=== PATIENT | female | born 1950 | race Caucasian/White ===

== ENCOUNTER 2022-03-08 06:58 | Emergency (ER) | payer MEDICARE, BC ==
[~2022-03-08] VITALS: Ht 167.6 cm; Wt 100.0 kg
[2022-03-08] MEDS ORDERED: NS 1,000 ML IV ONE (07:50)
[2022-03-08] MEDS ORDERED: ISOVUE-370 76% 100ML VIAL As Ordered ONE (08:18)
[2022-03-08 08:28] LABS: BASO % 0.4 % (0.0-1.0); EOS # 0.2 10^3/uL (0.0-0.5); EOS % 1.5 % (0.0-3.0); HEMATOCRIT 35.2 % (36.0-47.0); HEMOGLOBIN 11.3 g/dl (12.0-15.5); LYMPH # 2.4 10^3/uL (1.5-5.0); LYMPH % 21.9 % (24.0-44.0); MEAN CORPUSCULAR HEMOGLOBIN 30.5 pg (27.0-33.0); MEAN CORPUSCULAR HGB CONC 32.1 g/dl (32.0-36.5); MEAN CORPUSCULAR VOLUME 95.1 fl (80.0-96.0); MONO # 0.8 10^3/uL (0.0-0.8); NEUTROPHILS # 7.6 10^3/uL (1.5-8.5); NEUTROPHILS % 68.5 % (36.0-66.0); PLATELET COUNT, AUTOMATED 284 10^3/uL (150-450); WHITE BLOOD COUNT 11.1 10^3/uL (4.0-10.0)
[2022-03-08] MEDS ORDERED: HYDROMORPHONE HCL 0.5 MG/ 0.5 ML SYRINGE (J1170 PER 1) IV ONE (08:50)
[2022-03-08 09:16] LABS: ALBUMIN 3.4 GM/DL (3.2-5.2); BILIRUBIN,DIRECT 0.1 MG/DL (0.0-0.2); BILIRUBIN,TOTAL 0.1 MG/DL (0.2-1.0); TOTAL PROTEIN 6.7 GM/DL (6.4-8.2)
[2022-03-08 12:21] VITALS: BP 136/69
== END 2022-03-08 12:22 | disposition home or self-care (01) ==
LOC: M ED 06:58
DX: S22.080A Wedge compression fracture of T11-T12 vertebra, initial encounter for closed fracture (principal); S00.31XA Abrasion of nose, initial encounter; W06.XXXA Fall from bed, initial encounter; Y92.009 Unspecified place in unspecified non-institutional (private) residence as the place of occurrence of the external cause; N28.89 Other specified disorders of kidney and ureter; K76.89 Other specified diseases of liver; G31.9 Degenerative disease of nervous system, unspecified; Z98.1 Arthrodesis status; Z88.1 Allergy status to other antibiotic agents; Z79.899 Other long term (current) drug therapy; Z79.4 Long term (current) use of insulin
CPT/HCPCS: 70450; 70486; 71045; 74177; 80047; 80076; 81000; 83605; 85025; 87040; 87086; 87486; 87581; 87633; 87798; 96374; 99284; J1170; Q9967

== ENCOUNTER 2022-03-10 10:00 | Emergency (ER) | payer MEDICARE, BC ==
[~2022-03-10] VITALS: Ht 167.6 cm; Wt 95.5 kg
[2022-03-10] MEDS ORDERED: HYDR-4571 (10:25)
[2022-03-10] MEDS ORDERED: GABA-282 (10:25)
[2022-03-10] MEDS ORDERED: BASA100I (10:25)
[2022-03-10] MEDS ORDERED: BUPR10DI3 (10:25)
[2022-03-10] MEDS ORDERED: DULO1CAP6 (10:25)
[2022-03-10] MEDS ORDERED: FARX1TAB3 (10:25)
[2022-03-10] MEDS ORDERED: LEVO150T7 (10:25)
[2022-03-10] MEDS ORDERED: BUPR150T12 (10:25)
[2022-03-10] MEDS ORDERED: PRIM50TA6 (10:25)
[2022-03-10] MEDS ORDERED: OREN1INJ SC (10:25)
[2022-03-10] MEDS ORDERED: HYDR200T3 (10:25)
[2022-03-10] MEDS ORDERED: AMLO1TAB24 (10:25)
[2022-03-10] MEDS ORDERED: TRIA37.5 (10:25)
[2022-03-10] MEDS ORDERED: AZIT-12 (10:25)
[2022-03-10] MEDS ORDERED: PRED1TABL (10:25)
[2022-03-10] MEDS ORDERED: ATIV1TAB10 (10:25)
[2022-03-10] MEDS ORDERED: OMEP-173 (10:25)
[2022-03-10] MEDS ORDERED: NOVOINJ3 (10:25)
[2022-03-10] MEDS ORDERED: ALLO300T2 (10:25)
[2022-03-10] MEDS ORDERED: LOSA25TA13 (10:25)
[2022-03-10] MEDS ORDERED: GAMM1INJ IV (10:30)
[2022-03-10] MEDS ORDERED: MORPHINE 2 MG/ML 1ML VIAL IV ONE (11:25)
[2022-03-10 14:10] VITALS: BP 163/81
== END 2022-03-10 14:17 | disposition home or self-care (01) ==
LOC: EDBD 10:00 → M ED 10:00
DX: M54.50 Low back pain, unspecified (principal); W06.XXXA Fall from bed, initial encounter; M96.1 Postlaminectomy syndrome, not elsewhere classified; E11.9 Type 2 diabetes mellitus without complications; I10 Essential (primary) hypertension; J44.9 Chronic obstructive pulmonary disease, unspecified; M06.9 Rheumatoid arthritis, unspecified; Z85.828 Personal history of other malignant neoplasm of skin; N28.89 Other specified disorders of kidney and ureter; Z90.710 Acquired absence of both cervix and uterus; Z90.89 Acquired absence of other organs; Z88.1 Allergy status to other antibiotic agents; Z79.899 Other long term (current) drug therapy; Z79.4 Long term (current) use of insulin; Z79.890 Hormone replacement therapy
CPT/HCPCS: 72131; 96374; 99284; J2270